=== PATIENT | female | born 1985 | race Caucasian/White ===

== ENCOUNTER 2016-09-18 19:46 | Emergency (ER) | payer OTHER ==
[2016-09-18] MEDS ORDERED: Benzocaine 20% Topical Spray UD MUCMEM ONE ×2 (20:09→20:16)
[2016-09-18] MEDS ORDERED: Lidocaine 2% Viscous Solution 15 ML Cup PO ONE (20:09)
--- NOTE | 2016-09-18 20:14 | EDM.PDOC ---
ED HPI GENERAL MEDICAL PROBLEM - General Chief Complaint: General Stated Complaint: TOOTHACHE Time Seen by Provider: 09/18/16 20:03 - History of Present Illness INITIAL COMMENTS - FREE TEXT/NARRATIVE: HISTORY AND PHYSICAL: History of present illness: The patient is a healthy 31-year-old female presents with complaints of pain to her right upper molar that started this morning. The patient denies any swelling to her gum and has no other systemic complaints of fever chills chest pain shortness breath nausea vomiting or posterior sore throat. She states she knew she might of had a cavity in that tooth and then a piece broke off today which is triggered the pain. The patient has a history of a bilateral tubal ligation and took only Aleve for pain today. The patient has a child who has seen a local dentist and she said she is going to call them on Tuesday Review of systems: As per history of present illness and below otherwise all systems reviewed and negative. Past medical history: As per history of present illness and as reviewed below otherwise noncontributory. Surgical history: As per history of present illness and as reviewed below otherwise noncontributory. Social history: No reported history of drug or alcohol abuse. Family history: As per history of present illness and as reviewed below otherwise noncontributory. Physical exam: Gen.: Well-developed well-nourished thin female who is nontoxic and looks tearful in the room but is speaking clearly and easily. There is no evidence of any facial swelling seen visually HEENT: Atraumatic, normocephalic, pupils reactive, negative for conjunctival pallor or scleral icterus, mucous membranes moist, throat clear, neck supple, nontender, trachea midline. At the right upper molar tooth #2 there is a small defect noted posteriorly but no gum swelling and there is tenderness to any palpation of the tooth. There are other filling seen but no other gross dental disease is appreciated. There is no cervical adenopathy or nuchal rigidity. Lungs: Clear to auscultation, breath sounds equal bilaterally, chest nontender. Heart: S1S2, regular rate and rhythm no overt murmurs Abdomen: Soft, nondistended, nontender. NABS Genitourinary: Deferred. Rectal: Deferred. Extremities: Atraumatic, negative for cords or calf pain. Neurovascular unremarkable. Neuro: Awake, alert, oriented. Cranial nerves II through XII unremarkable. Cerebellum unremarkable. Motor and sensory unremarkable throughout. Exam nonfocal. Diagnostics: [] Therapeutics: Dental balls Impression: Dental pain/tooth fracture Definitive disposition and diagnosis as appropriate pending reevaluation and review of above. Right Upper Throat Pain Score (Numeric/FACES): 10 - Related Data Allergies Allergy/AdvReac Type Severity Reaction Status Date / Time amoxicillin Allergy Hives Verified 09/18/16 20:01 cefaclor [From Ceclor] Allergy Hives Verified 09/18/16 20:01 Home Meds: Home Meds . [No Known Home Meds] 09/18/16 [History] Past Medical History - Past Health History Medical/Surgical History: Denies Medical/Surgical History Respiratory History: Reports: Asthma Other Respiratory History: "I had asthma when I was little but I outgrew it" as reported by pt Genitourinary History: Reports: Other (See Below) Other Genitourinary History: left kidney enlarged - Infectious Disease History Infectious Disease History: Reports: Chicken Pox - Past Surgical History Respiratory Surgical History: Reports: None Female Surgical History: Reports: Section Social & Family History - Family History Family Medical History: Noncontributory - Tobacco Use Smoking Status *Q: Never Smoker Second Hand Smoke Exposure: No - Caffeine Use Caffeine Use: Reports: Soda Caffeine Use Comment: "rarely" - Alcohol Use Days Per Week of Alcohol Use: 0 - Recreational Drug Use Recreational Drug Use: No ED ROS GENERAL - Review of Systems Review Of Systems: ROS reveals no pertinent complaints other than HPI. ED EXAM, GENERAL - Physical Exam Exam: See Below (See dictation) Course - Vital Signs Last Recorded V/S: Last Vital Signs Temp 36.8 C 09/18/16 19:57 Pulse 78 09/18/16 19:57 Resp 18 09/18/16 19:57 BP 116/81 09/18/16 19:57 Pulse Ox 98 09/18/16 19:57 - Orders/Labs/Meds Meds: Medications Discontinued Medications Generic Name Dose Route Start Last Admin Trade Name Freq PRN Reason Stop Dose Admin Benzocaine 2 each 09/18/16 20:09 Hurricaine One 20% MUCMEM 09/18/16 20:10 ONETIME ONE Lidocaine HCl 15 ml 09/18/16 20:09 Xylocaine 2% Viscous PO 09/18/16 20:10 ONETIME ONE Departure - Departure Time of Disposition: 20:18 Disposition: Home, Self-Care 01 Condition: Good Clinical Impression: Pain, dental Tooth fracture Qualifiers: Encounter type: initial encounter Fracture type: closed Qualified Code(s): S02.5XXA - Fracture of tooth (traumatic), initial encounter for closed fracture - Discharge Information Forms: ED Department Discharge Additional Instructions: The following information is given to patients seen in the emergency department who are being discharged to home. This information is to outline your options for follow-up care. We provide all patients seen in our emergency department with a follow-up referral. The need for follow-up, as well as the timing and circumstances, are variable depending upon the specifics of your emergency department visit. If you don't have a primary care physician on staff, we will provide you with a referral. We always advise you to contact your personal physician following an emergency department visit to inform them of the circumstance of the visit and for follow-up with them and/or the need for any referrals to a consulting specialist. The emergency department will also refer you to a specialist when appropriate. This referral assures that you have the opportunity for followup care with a specialist. All of these measure are taken in an effort to provide you with optimal care, which includes your followup. Under all circumstances we always encourage you to contact your private physician who remains a resource for coordinating your care. When calling for followup care, please make the office aware that this follow-up is from your recent emergency room visit. If for any reason you are refused follow-up, please contact the [facility] emergency department at and ask to speak to the emergency department charge nurse. [facility]- Internal Medicine and Family [address] [address] Use ice to face for any swelling and use dental balls you have been given in the ED as shown for pain. Continue to use [id number] Aleve Motrin or ibuprofen as well as Tylenol and only take the stronger pain medication prescribed to at sleep time. Please call and follow-up with local dentist for definitive care and treatment and return to ER as needed and as discussed
[2016-09-18 20:38] VITALS: BP 142/89
== END 2016-09-18 20:35 | disposition home or self-care (01) ==
LOC: MW.ED 19:46
DX: K03.81 Cracked tooth (principal); J45.909 Unspecified asthma, uncomplicated; Z88.1 Allergy status to other antibiotic agents
CPT/HCPCS: 99283; A9270

== ENCOUNTER 2016-11-17 14:43 | Emergency (ER) | payer OTHER ==
[2016-11-17 14:57] VITALS: BP 115/82
--- NOTE | 2016-11-17 16:55 | EDM.PDOC ---
ED HPI GENERAL MEDICAL PROBLEM - General Chief Complaint: Upper Extremity Injury/Pain Stated Complaint: LT SHOULDER HURTS Time Seen by Provider: 11/17/16 15:05 Source of Information: Reports: Patient History Limitations: Reports: No Limitations - History of Present Illness INITIAL COMMENTS - FREE TEXT/NARRATIVE: HISTORY AND PHYSICAL: History of present illness: [] 31-year-old female 2 days status post fall one getting out of her truck. Patient states she injured her left shoulder area. It's been sore since that time. She is able to use her hand and arm but the shoulders been mildly sore. She denies collarbone pain. Patient also reports that left lateral ribs are sore. She is not short of breath and has no pleuritic pain. She has no swelling or bruising or skin changes. No prior injury to the shoulder and no chronic bone or bleeding problems Review of systems: As per history of present illness and below otherwise all systems reviewed and negative. Past medical history: As per history of present illness and as reviewed below otherwise noncontributory. Surgical history: As per history of present illness and as reviewed below otherwise noncontributory. Social history: No reported history of drug or alcohol abuse. Family history: As per history of present illness and as reviewed below otherwise noncontributory. Physical exam: Well-appearing 31-year-old female no acute distress mild soft tissue tenderness left shoulder and left lateral ribs no bony tenderness or crepitus. No subcutaneous air well-appearing patient with no ecchymosis. Nurse present for exam. HEENT: Atraumatic, normocephalic, pupils reactive, negative for conjunctival pallor or scleral icterus, mucous membranes moist, throat clear, neck supple, nontender, trachea midline. Lungs: Clear to auscultation, breath sounds equal bilaterally, chest nontender. Heart: S1S2, regular, negative for clicks, rubs, or JVD. Abdomen: Soft, nondistended, nontender. Negative for masses or hepatosplenomegaly. Negative for costovertebral tenderness. Pelvis: Stable nontender. Genitourinary: Deferred. Rectal: Deferred. Extremities: Atraumatic, negative for cords or calf pain. Neurovascular unremarkable. Neuro: Awake, alert, oriented. Cranial nerves unremarkable. Cerebellum unremarkable. Motor and sensory unremarkable throughout. Exam nonfocal. Diagnostics: [X-ray left shoulder and left ribs with PA chest unremarkable with no fractures no pneumothorax interpreted by me] Therapeutics: [] Impression: [] Plan: [Signs and symptoms consistent with left rib injury and contusion of left chest wall. Patient aware of possibility of nondisplaced fracture however she does not have bony tenderness clinically. No pneumothorax. Mild soft tissue tenderness left shoulder but without swelling or ecchymosis. X-rays unremarkable. No further workup or treatment indicated. Patient aware to take NSAIDs and Tylenol and follow-up with a primary care doctor. She agrees with outpatient follow-up and Strict return precautions given] Definitive disposition and diagnosis as appropriate pending reevaluation and review of above. Left Shoulder Pain Score (Numeric/FACES): 6 - Related Data Allergies Allergy/AdvReac Type Severity Reaction Status Date / Time amoxicillin Allergy Hives Verified 09/18/16 20:01 cefaclor [From Ceclor] Allergy Hives Verified 09/18/16 20:01 Home Meds: Home Meds . [No Known Home Meds] 09/18/16 [History] Past Medical History - Past Health History Medical/Surgical History: Denies Medical/Surgical History Respiratory History: Reports: Asthma Other Respiratory History: "I had asthma when I was little but I outgrew it" as reported by pt Genitourinary History: Reports: Other (See Below) Other Genitourinary History: left kidney enlarged - Infectious Disease History Infectious Disease History: Reports: Chicken Pox - Past Surgical History Respiratory Surgical History: Reports: None Female Surgical History: Reports: Section Social & Family History - Family History Family Medical History: Noncontributory - Tobacco Use Smoking Status *Q: Never Smoker Second Hand Smoke Exposure: No - Caffeine Use Caffeine Use: Reports: Soda Caffeine Use Comment: "rarely" - Alcohol Use Days Per Week of Alcohol Use: 0 - Recreational Drug Use Recreational Drug Use: No Review of Systems - Review of Systems Review Of Systems: See Below (History of present illness) ED EXAM, GENERAL - Physical Exam Exam: See Below (History of present illness) Course - Vital Signs Last Recorded V/S: Last Vital Signs Temp 36.6 C 11/17/16 14:53 Pulse 71 11/17/16 14:53 Resp 18 11/17/16 14:53 BP 115/82 11/17/16 14:53 Pulse Ox 99 11/17/16 14:53 - Orders/Labs/Meds Orders: Active Orders 24 hr Category Date Time Status Ribs 2V w Chest Lt [CR] Stat Exams 11/17/16 15:14 Taken Shoulder Comp Lt [CR] Stat Exams 11/17/16 15:14 Taken Departure - Departure Time of Disposition: 16:48 Disposition: Home, Self-Care 01 Condition: Good Clinical Impression: Contusion of left shoulder, Contusion, chest wall - Discharge Information Instructions: Chest Contusion, [id number] Referrals: PCP,None [Primary Care Provider] - Forms: ED Department Discharge Additional Instructions: You have a contusions or bruises of your left shoulder and left chest wall. Take ibuprofen 600 mg every 6 hrs as needed. Follow up with your doctor. Return immediately for new severe or worsening symptoms. - My Orders Last 24 Hours: My Active Orders 11/17/16 15:14 Ribs 2V w Chest Lt [CR] Stat Shoulder Comp Lt [CR] Stat - Assessment/Plan Last 24 Hours: My Active Orders 11/17/16 15:14 Ribs 2V w Chest Lt [CR] Stat Shoulder Comp Lt [CR] Stat
--- NOTE | 2016-11-18 09:55 | CR ---
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 Site : 1985 Study: XRay Shoulder [id number]/27/[id number] 3:50:02 PM Ordering Physician: Silviano Ambriz Final Report: HISTORY: Fall. FINDINGS: Three views of the left shoulder demonstrates normal alignment. No fracture or dislocation is identified. IMPRESSION: Normal left shoulder. Dictated by Andie Ray MD @ 11/17/2016 4:10:57 PM Dictated by: Andie Ray MD @ 11/17/2016 16:13:02 (Electronic Signature) Report Signed by Proxy. [facility]ENTERJocelyn
--- NOTE | 2016-11-18 09:57 | CR ---
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 Site : 1985 Study: XRay Chest w/ RIBS [id number]/27/2017 3:51:29 PM Ordering Physician: Silviano Ambriz Final Report: HISTORY: Fall, chest wall injury. FINDINGS: PA chest and 3 additional views of the left ribs demonstrates a slender cardiac silhouette. Pulmonary vasculature and petros are normal. No consolidation, pleural effusion or pneumothorax is identified. The left clavicle and shoulder are intact. No displaced rib fracture is seen. IMPRESSION: No acute cardiopulmonary disease, displaced rib fracture or pneumothorax. Dictated by Andie Ray MD @ 11/17/2016 4:12:50 PM Dictated by: Andie Ray MD @ 11/17/2016 16:12:58 (Electronic Signature) Report Signed by Proxy. [facility]ENTER[facility]ocelyn
== END 2016-11-17 17:02 | disposition home or self-care (01) ==
LOC: MW.ED 14:43
DX: S40.012A Contusion of left shoulder, initial encounter (principal); S20.212A Contusion of left front wall of thorax, initial encounter; J45.909 Unspecified asthma, uncomplicated; Z88.1 Allergy status to other antibiotic agents; W17.89XA Other fall from one level to another, initial encounter
CPT/HCPCS: 71101-26-LT; 71101-LT; 73030-26-LT; 73030-LT; 99282; 99283

== ENCOUNTER 2016-11-21 10:20 | Emergency (ER) | payer OTHER ==
[2016-11-21] MEDS ORDERED: Ketorolac 60 MG/2 ML SDV IM ONE (10:39)
[2016-11-21] MEDS ORDERED: Sodium Chloride 0.9% 10 ML Syringe FLUSH PRN (10:49)
[2016-11-21] MEDS ORDERED: Sodium Chloride 0.9% 2.5 ML Syringe FLUSH PRN (10:49)
[2016-11-21] MEDS ORDERED: Sodium Chloride 0.9% 1,000 ML IV ONE (10:50)
--- NOTE | 2016-11-21 10:55 | EDM.PDOC ---
ED HPI GENERAL MEDICAL PROBLEM - General Chief Complaint: Abdominal Pain Stated Complaint: LOWER ABDMONAIL PAIN Time Seen by Provider: 11/21/16 10:45 Source of Information: Reports: Patient History Limitations: Reports: No Limitations - History of Present Illness INITIAL COMMENTS - FREE TEXT/NARRATIVE: HISTORY AND PHYSICAL: [31-year-old female presenting with pelvic pain after trying to void 30 minutes ago] History of Present Illness: [Patient was at a local chest pain had to use the restroom and pain became excruciating when she had to void] Review of Systems: As per history of present illness and below otherwise all systems reviewed and negative. Past medical history: As per history of present illness and as reviewed below otherwise noncontributory. Surgical history: As per history of present illness and as reviewed below otherwise noncontributory. Social history: No reported history of drug or alcohol abuse. Family history: As per history of present illness and as reviewed below otherwise noncontributory. Physical exam: Alert oriented female who is in distress with her pain is slightly guarding with examination HEENT: Atraumatic, normocehpalic, pupils reactive, negative for conjunctival pallor or scleral icterus, mucous membranes moist, throat clear, neck supple, nontender, trachea midline. Lungs: Clear to auscultation, breath sounds equal bilaterally, chest non tender. Heart: S1S2, regular, negative for clicks, rubs, or JVD. Abdomen: Soft, nondistended, tender. Negative for masses or hepatossplenmegaly. Negative for costovertebral tenderness. Bladder scan shows 0. Pelvis: Stable nontender. Genitourinary: Deferred. Rectal: Deferred Extremities: Atraumatic, negative for cords or calf pain. Neurovascular unremarkable. Neuro: Awake, alert, oriented. Cranial nerves II through XII unremarkable. Cerebellum unremarkable. Motor and sensory unremarkable throughout. Exam nonfocal. Discussed with patient and her that no gross abnormalities were noted on the ultrasound. Small amount of pelvic fluid was present. No infection is present on urinalysis. Diagnostics: [Urinalysis/ ultrasound pelvic] Therapeutics: [Toradol] Impression: [Pelvic pain Fluid to the cul-de-sac ] Plan: []Discharged to home Follow up with your primary care Definitive disposition and diagnosis as appropriate pending reevaluation and review of above. Onset: Today, Sudden Duration: Minutes: (30) Location: Reports: Pelvis hypogastric Pain Score (Numeric/FACES): 10 - Related Data Allergies Allergy/AdvReac Type Severity Reaction Status Date / Time amoxicillin Allergy Hives Verified 11/21/16 10:27 cefaclor [From Ceclor] Allergy Hives Verified 11/21/16 10:27 Home Meds: Home Meds . 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: - Infectious Disease History Infectious Disease History: Reports: Chicken Pox - Past Surgical History Respiratory Surgical History: Reports: None Female Surgical History: Reports: Section Social & Family History - Family History Family Medical History: Noncontributory - Tobacco Use Smoking Status *Q: Never Smoker Second Hand Smoke Exposure: No - Caffeine Use Caffeine Use: Reports: Soda Caffeine Use Comment: "rarely" - Alcohol Use Days Per Week of Alcohol Use: 0 - Recreational Drug Use Recreational Drug Use: No ED ROS GENERAL - Review of Systems Review Of Systems: ROS reveals no pertinent complaints other than HPI. (See dictation) ED EXAM, RENAL/ - Physical Exam Exam: See Below (See dictation) Course - Vital Signs Last Recorded V/S: Last Vital Signs Temp 36.5 C 11/21/16 10:20 Pulse 69 11/21/16 11:17 Resp 20 11/21/16 10:20 BP 106/69 11/21/16 11:17 Pulse Ox - Orders/Labs/Meds Orders: Active Orders 24 hr Category Date Time Status Pelvis Non OB Comp [US] Stat Exams 11/21/16 10:48 Taken CULTURE URINE [RM] Stat Lab 11/21/16 10:55 Received Sodium Chloride 0.9% [Saline Flush] Med 11/21/16 10:49 Active 10 ml FLUSH ASDIRECTED PRN Sodium Chloride 0.9% [Saline Flush] Med 11/21/16 10:49 Active 2.5 ml FLUSH ASDIRECTED PRN Saline Lock Insert [OM.PC] Stat Oth 11/21/16 10:49 Ordered Medication Orders Sodium Chloride (Saline Flush) 10 ml FLUSH ASDIRECTED PRN PRN Reason: Keep Vein Open Last Admin: 11/21/16 11:00 Dose: 10 ml Sodium Chloride (Saline Flush) 2.5 ml FLUSH ASDIRECTED PRN PRN Reason: Keep Vein Open Last Admin: 11/21/16 11:01 Dose: 2.5 ml Labs: Laboratory Tests 11/21/16 11/21/16 11/21/16 Range/Units 10:55 10:55 11:00 WBC 3.88 L (4.0-11.0) K/uL RBC 3.98 L (4.30-5.90) M/uL Hgb 12.2 (12.0-16.0) g/dL Hct 36.5 (36.0-46.0) % MCV 91.7 (80.0-98.0) fL MCH 30.7 (27.0-32.0) pg MCHC 33.4 (31.0-37.0) g/dL RDW Std Deviation 41.4 (28.0-62.0) fl RDW Coeff of Catherine 12 (11.0-15.0) % Plt Count 146 L (150-400) K/uL MPV 11.30 (7.40-12.00) fL Neut % (Auto) 60.9 (48.0-80.0) % Lymph % (Auto) 31.4 (16.0-40.0) % Shackelford % (Auto) 6.2 (0.0-15.0) % Eos % (Auto) 0.5 (0.0-7.0) % Baso % (Auto) 1.0 (0.0-1.5) % Neut # (Auto) 2.4 (1.4-5.7) K/uL Lymph # (Auto) 1.2 (0.6-2.4) K/uL Shackelford # (Auto) 0.2 (0.0-0.8) K/uL Eos # (Auto) 0.0 (0.0-0.7) K/uL Baso # (Auto) 0.0 (0.0-0.1) K/uL Nucleated RBC % 0.0 /100WBC Nucleated RBCs # 0 K/uL Sodium (136-146) mmol/L Potassium (3.5-5.1) mmol/L Chloride (98-110) mmol/L Carbon Dioxide (21-31) mmol/L BUN (6.0-23.0) mg/dL Creatinine (0.6-1.5) mg/dL Est Cr Clr Drug Dosing mL/min Estimated GFR (MDRD) ml/min Glucose (60-110) mg/dL Calcium (8.8-10.8) mg/dL Total Bilirubin (0.1-1.5) mg/dL AST (5-40) IU/L ALT (8-54) IU/L Alkaline Phosphatase (40-150) Total Protein (6.0-8.0) g/dL Albumin (3.5-5.0) g/dL Globulin (2.0-3.5) g/dL Albumin/Globulin Ratio (1.3-2.8) Urine Color YELLOW Urine Appearance CLEAR Urine pH 7.0 (5.0-8.0) Ur Specific Marlin 1.015 (1.001-1.035) Urine Protein NEGATIVE (NEGATIVE) mg/dL Urine Glucose (UA) NEGATIVE (NEGATIVE) mg/dL Urine Ketones NEGATIVE (NEGATIVE) mg/dL Urine Occult Blood NEGATIVE (NEGATIVE) Urine Nitrite NEGATIVE (NEGATIVE) Urine Bilirubin NEGATIVE (NEGATIVE) Urine Urobilinogen 0.2 (<2.0) EU/dL Ur Leukocyte Esterase NEGATIVE (NEGATIVE) Urine RBC NONE SEEN (0-2/HPF) Urine WBC 0-1 (0-5/HPF) Ur Epithelial Cells FEW (NONE-FEW) Urine Bacteria FEW (NEGATIVE) Urine HCG, Qual NEGATIVE (NEGATIVE) 11/21/16 Range/Units 11:00 WBC (4.0-11.0) K/uL RBC (4.30-5.90) M/uL Hgb (12.0-16.0) g/dL Hct (36.0-46.0) % MCV (80.0-98.0) fL MCH (27.0-32.0) pg MCHC (31.0-37.0) g/dL RDW Std Deviation (28.0-62.0) fl RDW Coeff of Catherine (11.0-15.0) % Plt Count (150-400) K/uL MPV (7.40-12.00) fL Neut % (Auto) (48.0-80.0) % Lymph % (Auto) (16.0-40.0) % Shackelford % (Auto) (0.0-15.0) % Eos % (Auto) (0.0-7.0) % Baso % (Auto) (0.0-1.5) % Neut # (Auto) (1.4-5.7) K/uL Lymph # (Auto) (0.6-2.4) K/uL Shackelford # (Auto) (0.0-0.8) K/uL Eos # (Auto) (0.0-0.7) K/uL Baso # (Auto) (0.0-0.1) K/uL Nucleated RBC % /100WBC Nucleated RBCs # K/uL Sodium 139 (136-146) mmol/L Potassium 3.8 (3.5-5.1) mmol/L Chloride 108 (98-110) mmol/L Carbon Dioxide 26 (21-31) mmol/L BUN 16 (6.0-23.0) mg/dL Creatinine 0.7 (0.6-1.5) mg/dL Est Cr Clr Drug Dosing 79.23 mL/min Estimated GFR (MDRD) > 60.0 ml/min Glucose 70 (60-110) mg/dL Calcium 9.2 (8.8-10.8) mg/dL Total Bilirubin 0.7 (0.1-1.5) mg/dL AST 20 (5-40) IU/L ALT 15 (8-54) IU/L Alkaline Phosphatase 54 (40-150) Total Protein 6.9 (6.0-8.0) g/dL Albumin 4.1 (3.5-5.0) g/dL Globulin 2.8 (2.0-3.5) g/dL Albumin/Globulin Ratio 1.5 (1.3-2.8) Urine Color Urine Appearance Urine pH (5.0-8.0) Ur Specific Marlin (1.001-1.035) Urine Protein (NEGATIVE) mg/dL Urine Glucose (UA) (NEGATIVE) mg/dL Urine Ketones (NEGATIVE) mg/dL Urine Occult Blood (NEGATIVE) Urine Nitrite (NEGATIVE) Urine Bilirubin (NEGATIVE) Urine Urobilinogen (<2.0) EU/dL Ur Leukocyte Esterase (NEGATIVE) Urine RBC (0-2/HPF) Urine WBC (0-5/HPF) Ur Epithelial Cells (NONE-FEW) Urine Bacteria (NEGATIVE) Urine HCG, Qual (NEGATIVE) Meds: Medications Generic Name Dose Route Start Last Admin Trade Name Freq PRN Reason Stop Dose Admin Sodium Chloride 10 ml 11/21/16 10:49 11/21/16 11:00 Saline Flush FLUSH 10 ml ASDIRECTED PRN Administration Keep Vein Open Sodium Chloride 2.5 ml 11/21/16 10:49 11/21/16 11:01 Saline Flush FLUSH 2.5 ml ASDIRECTED PRN Administration Keep Vein Open Discontinued Medications Generic Name Dose Route Start Last Admin Trade Name Freq PRN Reason Stop Dose Admin Sodium Chloride 1,000 mls @ 999 mls/hr 11/21/16 10:50 11/21/16 11:10 Normal Saline IV 11/21/16 11:50 999 mls/hr STAT ONE Administration Ketorolac Tromethamine 60 mg 11/21/16 10:39 11/21/16 11:39 Toradol IM 11/21/16 10:40 Not Given ONETIME ONE Ketorolac Tromethamine 30 mg 11/21/16 11:10 11/21/16 11:14 Toradol IVPUSH 11/21/16 11:11 30 mg ONETIME ONE Administration Departure - Departure Time of Disposition: 12:45 Disposition: Home, Self-Care 01 Condition: Good Clinical Impression: Pelvic pain - Discharge Information Instructions: Abdominal Pain, Adult, [id number] Referrals: PCP,None [Primary Care Provider] - Forms: ED Department Discharge Additional Instructions: The following information is given to patients seen in the emergency department who are being discharged to home. This information is to outline your options for follow-up care. We provide all patients seen in our emergency department with a follow-up referral. The need for follow-up, as well as the timing and circumstances, are variable depending upon the specifics of your emergency department visit. If you don't have a primary care physician on staff, we will provide you with a referral. We always advise you to contact your personal physician following an emergency department visit to inform them of the circumstance of the visit and for follow-up with them and/or the need for any referrals to a consulting specialist. The emergency department will also refer you to a specialist when appropriate. This referral assures that you have the opportunity for followup care with a specialist. All of these measure are taken in an effort to provide you with optimal care, which includes your followup. Under all circumstances we always encourage you to contact your private physician who remains a resource for coordinating your care. When calling for followup care, please make the office aware that this follow-up is from your recent emergency room visit. If for any reason you are refused follow-up, please contact the [facility] emergency department at and asked to speak to the emergency department charge nurse. The fluid in your pelvis could have been from a cyst however no adverse signs were noted Urinalysis was clear of any bacteria HCG was negative for Follow-up with your primary care provider Sleep perhaps a heating pad on low two-year abdomen may help [id number] Tylenol or Motrin for discomfort - My Orders Last 24 Hours: My Active Orders 11/21/16 10:48 Pelvis Non OB Comp [US] Stat 11/21/16 10:49 Sodium Chloride 0.9% [Saline Flush] 10 ml FLUSH ASDIRECTED PRN Sodium Chloride 0.9% [Saline Flush] 2.5 ml FLUSH ASDIRECTED PRN Saline Lock Insert [OM.PC] Stat 11/21/16 10:55 CULTURE URINE [RM] Stat - Assessment/Plan Last 24 Hours: My Active Orders 11/21/16 10:48 Pelvis Non OB Comp [US] Stat 11/21/16 10:49 Sodium Chloride 0.9% [Saline Flush] 10 ml FLUSH ASDIRECTED PRN Sodium Chloride 0.9% [Saline Flush] 2.5 ml FLUSH ASDIRECTED PRN Saline Lock Insert [OM.PC] Stat 11/21/16 10:55 CULTURE URINE [RM] Stat
[2016-11-21] MEDS ORDERED: Ketorolac 30 MG/ML SDV IVPUSH ONE (11:10)
[2016-11-21 11:34] LABS: CHLORIDE,CL 108 mmol/L (98-110); SODIUM,NA 139 mmol/L (136-146)
[2016-11-21 12:52] VITALS: BP 120/74
--- NOTE | 2016-11-22 14:36 | US ---
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 Site : 1985 Study: US Pelvis [id number] 12:00:35 PM Ordering Physician: Doctor Bledsoe Final Report: INDICATION: Left pelvic pain for 2 hour. TECHNIQUE: Transabdominal and transvaginal scanning was performed. Transvaginal scanning was performed to optimally evaluate the endometrium and adnexa. Ovarian blood flow was evaluated with color-flow and pulsed Doppler. COMPARISON: None. FINDINGS: The uterus is mildly enlarged and normal in shape. The uterus measures 9.7 x 6.7 x 4.2 cm. No uterine mass is evident. The endometrial stripe is normal in thickness at 7 mm. The ovaries are normal in size and contain a number of follicles. The right ovary measures 3.3 x 3.0 x 2.1 cm and left 3.0 x 1.8 x 1.2 cm. Ovarian blood flow is demonstrated with color-flow and pulsed Doppler. No adnexal mass is evident. A small amount of free fluid is present in the cul- de-sac and in the right adnexa. This is presumably physiologic IMPRESSION: 1. Normal ovaries and adnexa. 2. Small amount of free fluid, likely physiologic. 3. Mildly enlarged uterus. Dictated by Edward Kyle MD @ Nov 21 2016 12:10PM (Electronic Signature) Report Signed by Proxy. VALDEZ
== END 2016-11-21 12:57 | disposition home or self-care (01) ==
LOC: MW.ED 10:20
DX: R10.2 Pelvic and perineal pain (principal); J45.909 Unspecified asthma, uncomplicated; Z88.1 Allergy status to other antibiotic agents
CPT/HCPCS: 36415; 76856; 80053; 81001; 81025; 85025; 87086; 96361; 96374; 99284; J1885; J7040; 99282

== ENCOUNTER 2017-04-30 20:31 | Emergency (ER) | payer OTHER ==
[2017-04-30] MEDS ORDERED: Sodium Chloride 0.9% 1,000 ML IV ONE (20:34)
[2017-04-30] MEDS ORDERED: Morphine 2 MG/ML Syringe ONE (20:34)
[2017-04-30] MEDS ORDERED: Sodium Chloride 0.9% 10 ML Syringe FLUSH PRN (20:34)
[2017-04-30] MEDS ORDERED: Sodium Chloride 0.9% 2.5 ML Syringe FLUSH PRN (20:34)
[2017-04-30] MEDS ORDERED: Ondansetron 4 MG/2 ML SDV ONE (20:34)
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
[2017-04-30] MEDS ORDERED: Morphine 2 MG/ML Syringe IVPUSH ONE (20:48)
[2017-04-30] MEDS ORDERED: Ondansetron 4 MG/2 ML SDV IVPUSH ONE (20:48)
[2017-04-30 21:05] LABS: CHLORIDE,CL 106 mmol/L (98-107); SODIUM,NA 141 mmol/L (136-145)
[2017-04-30 22:53] VITALS: BP 131/85
[2017-05-02] MEDS ORDERED: Iopamidol 755 MG/ML 200 ML Multipack Bottle IVPUSH STA (03:28)
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
== END 2017-04-30 22:15 ==
LOC: MW.ED 20:31
DX: S06.5X0A Traumatic subdural hemorrhage without loss of consciousness, initial encounter (principal); S00.83XA Contusion of other part of head, initial encounter; S50.311A Abrasion of right elbow, initial encounter; S80.211A Abrasion, right knee, initial encounter; S60.411A Abrasion of left index finger, initial encounter; R10.30 Lower abdominal pain, unspecified; M25.552 Pain in left hip; M25.562 Pain in left knee; M54.2 Cervicalgia; J45.909 Unspecified asthma, uncomplicated; V43.62XA Car passenger injured in collision with other type car in traffic accident, initial encounter; Z88.1 Allergy status to other antibiotic agents
CPT/HCPCS: 70450; 71260; 72125; 74177; 80053; 80305; 81001; 83690; 84703; 85025; 85610; 93005; 96361; 96374; 96375; 99285; G0480; J2270; J2405; J7040; Q9967

== ENCOUNTER 2018-05-06 12:35 | Emergency (ER) | payer OTHER ==
[2018-05-06 12:46] VITALS: BP 96/48
[2018-05-06] MEDS ORDERED: traMADol 50 MG Tab PO ONE (12:54)
--- NOTE | 2018-05-06 13:41 | EDM.PDOC ---
ED HPI GENERAL MEDICAL PROBLEM - General Chief Complaint: Lower Extremity Injury/Pain Stated Complaint: INJURED LT ANKLE Time Seen by Provider: 05/06/18 12:37 Source of Information: Reports: Patient History Limitations: Reports: No Limitations - History of Present Illness INITIAL COMMENTS - FREE TEXT/NARRATIVE: HISTORY AND PHYSICAL: History of present illness: Patient is a 32-year-old female who presents to the emergency room with complaints of left lateral ankle pain. She states she was walking outside when she twisted her ankle resulting in pain, soft tissue swelling and light bruising. She states it's painful with weightbearing and ambulation. Denies any previous injury, trauma or surgeries of the affected extremity. The twisting of the ankle did not result in a fall. Denies any other concerns or body part Review of systems: As per history of present illness and below otherwise all systems reviewed and negative. Past medical history: As per history of present illness and as reviewed below otherwise noncontributory. Surgical history: As per history of present illness and as reviewed below otherwise noncontributory. Social history: See social history for further information Family history: As per history of present illness and as reviewed below otherwise noncontributory. Physical exam: General: Well-developed and well-nourished 32-year-old female. Alert and oriented. Nontoxic appearing and in no acute distress. HEENT: Atraumatic, normocephalic, pupils equal and reactive bilaterally, negative for conjunctival pallor or scleral icterus, mucous membranes moist, TMs normal bilaterally, throat clear, neck supple, nontender, trachea midline. No drooling or trismus noted. No meningeal signs. No hot potato voice noted. Lungs: Clear to auscultation, breath sounds equal bilaterally, chest nontender. Heart: S1S2, regular rate and rhythm without overt murmur Abdomen: Soft, nondistended, nontender. Skin: There is bruising to the left lateral ankle with mild soft tissue swelling. Skin is intact warm and dry. No lesions or rashes noted. Extremities: Bruising to the left lateral ankle with mild soft tissue swelling. She has moderate tenderness with palpation to the lateral ankle and anterior ankle. She is weightbearing as she did ambulate into the emergency room. Strong pedal and pretibial pulse. She is negative for cords or calf pain. Neurovascular unremarkable. Neuro: Awake, alert, oriented. Cranial nerves II through XII unremarkable. Cerebellum unremarkable. Motor and sensory unremarkable throughout. Exam nonfocal. Notes: Patient has exquisite tenderness with light palpation. I will give her tramadol as her is here to drive. X-ray pending X-ray shows no acute findings. We'll put her in an Andrea wrap for comfort and provided crutches. Encouraged her to follow-up with the orthopedic provider in the next week. Supportive care measures were reviewed and discussed. Voices understanding and is agreeable to plan of care. Denies any further questions or concerns at this time. Diagnostics: X-ray Therapeutics: Tramadol, crutches, Andrea wrap Prescription: Tramadol Impression: Left ankle injury Plan: 1. Rest, ice, elevate the affected extremity. Please wear the Andrea wrap and use crutches as directed. 2. Tylenol and/or Ibuprofen as needed for pain management. 3. Follow up with the Orthopedic provider as we discussed. Return to the ED as needed and as discussed. Definitive disposition and diagnosis as appropriate pending reevaluation and review of above. Left Ankle Pain Score (Numeric/FACES): 10 - Related Data Allergies Allergy/AdvReac Type Severity Reaction Status Date / Time amoxicillin Allergy Hives Verified 05/06/18 12:42 cefaclor [From Ceclor] Allergy Hives Verified 05/06/18 12:42 Home Meds: Home Meds Ciprofloxacin [Ciprofloxacin HCl] 500 mg PO DAILY 05/06/18 [History] Potassium Chloride 10 meq PO DAILY 05/06/18 [History] traMADol [Ultram] 50 mg PO Q4H PRN #15 tab 05/06/18 [Rx] Past Medical History - Past Health History Medical/Surgical History: Denies Medical/Surgical History Respiratory History: Reports: Asthma Other Respiratory History: "I had asthma when I was little but I outgrew it" as reported by pt Genitourinary History: Reports: Other (See Below) Other Genitourinary History: left kidney enlarged [employer] History: Reports: - Infectious Disease History Infectious Disease History: Reports: Chicken Pox - Past Surgical History Respiratory Surgical History: Reports: None Female Surgical History: Reports: Section Social & Family History - Family History Family Medical History: Noncontributory - Tobacco Use Smoking Status *Q: Never Smoker Second Hand Smoke Exposure: No - Caffeine Use Caffeine Use: Reports: None Caffeine Use Comment: "rarely" - Recreational Drug Use Recreational Drug Use: No Review of Systems - Review of Systems Review Of Systems: ROS reveals no pertinent complaints other than HPI. ED EXAM, GENERAL - Physical Exam Exam: See Below Course - Vital Signs Last Recorded V/S: Last Vital Signs Temp 97.8 F 05/06/18 12:43 Pulse 69 05/06/18 12:43 Resp 18 05/06/18 12:43 BP 96/48 L 05/06/18 12:43 Pulse Ox 100 05/06/18 12:43 - Orders/Labs/Meds Orders: Active Orders 24 hr Category Date Time Status DME for Discharge [COMM] Stat Oth 05/06/18 13:41 Ordered Meds: Medications Discontinued Medications Generic Name Dose Route Start Last Admin Trade Name Freq PRN Reason Stop Dose Admin Ondansetron HCl 4 mg 05/06/18 13:45 Zofran IVPUSH 05/06/18 13:46 ONETIME ONE Ondansetron HCl 4 mg 05/06/18 13:47 05/06/18 13:49 Zofran Odt PO 05/06/18 13:48 4 mg ONETIME ONE Administration Tramadol HCl 50 mg 05/06/18 12:54 05/06/18 13:00 Ultram PO 05/06/18 12:55 50 mg ONETIME ONE Administration Departure - Departure Time of Disposition: 13:40 Disposition: Home, Self-Care 01 Clinical Impression: Left ankle injury Qualifiers: Encounter type: initial encounter Qualified Code(s): S99.912A - Unspecified injury of left ankle, initial encounter - Discharge Information Prescriptions: traMADol [Ultram] 50 mg PO Q4H PRN #15 tab PRN Reason: Pain Instructions: Ankle Sprain, [id number] Referrals: PCP,Unknown [Primary Care Provider] - Forms: ED Department Discharge Additional Instructions: The following information is given to patients seen in the emergency department who are being discharged to home. This information is to outline your options for follow-up care. We provide all patients seen in our emergency department with a follow-up referral. The need for follow-up, as well as the timing and circumstances, are variable depending upon the specifics of your emergency department visit. If you don't have a primary care physician on staff, we will provide you with a referral. We always advise you to contact your personal physician following an emergency department visit to inform them of the circumstance of the visit and for follow-up with them and/or the need for any referrals to a consulting specialist. The emergency department will also refer you to a specialist when appropriate. This referral assures that you have the opportunity for follow-up care with a specialist. All of these measure are taken in an effort to provide you with optimal care, which includes your follow-up. Under all circumstances we always encourage you to contact your private physician who remains a resource for coordinating your care. When calling for follow-up care, please make the office aware that this follow-up is from your recent emergency room visit. If for any reason you are refused follow-up, please contact the [facility] Emergency Department at and asked to speak to the emergency department charge nurse. [facility] [address] [place] [address] [id number] [address] [address] [facility] [address], [address] [place] [address] 1. Rest, ice, elevate the affected extremity. Please wear the splint and use crutches as directed. 2. Tylenol and/or Ibuprofen as needed for pain management. 3. Follow up with the Orthopedic provider as we discussed. Return to the ED as needed and as discussed. - My Orders Last 24 Hours: My Active Orders 05/06/18 13:41 DME for Discharge [COMM] Stat - Assessment/Plan Last 24 Hours: My Active Orders 05/06/18 13:41 DME for Discharge [COMM] Stat
[2018-05-06] MEDS ORDERED: Ondansetron 4 MG/2 ML SDV IVPUSH ONE (13:45)
[2018-05-06] MEDS ORDERED: Ondansetron 4 MG Tab.DIS PO ONE (13:47)
--- NOTE | 2018-05-06 13:49 | CR ---
INDICATION: Left ankle pain. TECHNIQUE: X-ray left ankle, 3 views. COMPARISON: None available. FINDINGS: The alignment is normal. Negative for acute fracture or dislocation. The ankle mortise is intact. The overlying soft tissues unremarkable. No radiopaque foreign body is seen. IMPRESSION: Unremarkable radiographs of the left ankle. Dictated by Gemma Catherine MD @ 05/06/2018 1:47:46 PM Dictated by: Gemma Catherine MD @ 05/06/2018 13:47:53 (Electronically Signed)
== END 2018-05-06 14:02 | disposition home or self-care (01) ==
LOC: MW.ED 12:35
DX: S99.912A Unspecified injury of left ankle, initial encounter (principal); Z79.899 Other long term (current) drug therapy; Z88.1 Allergy status to other antibiotic agents; X50.9XXA Other and unspecified overexertion or strenuous movements or postures, initial encounter
CPT/HCPCS: 73610; 99283; A9270

== ENCOUNTER 2018-06-29 16:12 | Emergency (ER) | payer OTHER ==
--- NOTE | 2018-06-29 16:38 | EDM.PDOC ---
ED HPI GENERAL MEDICAL PROBLEM - General Stated Complaint: HANDS AN FEET ARE COLD Time Seen by Provider: 06/29/18 16:14 Source of Information: Reports: Patient History Limitations: Reports: No Limitations - History of Present Illness INITIAL COMMENTS - FREE TEXT/NARRATIVE: History of present illness: []Patient noted today that both her hands and feet have been feeling cold and have been dark red. She denies any trauma, fevers, chills, back chest or abdominal pain. Patient states that her wedding ring is usually loose but today she struggled to take it off noting swelling in her hands. Review of systems: As per history of present illness and below otherwise all systems reviewed and negative. Past medical history: As per history of present illness and as reviewed below otherwise noncontributory. Surgical history: As per history of present illness and as reviewed below otherwise noncontributory. Social history: No reported history of drug or alcohol abuse. Family history: As per history of present illness and as reviewed below otherwise noncontributory. Physical exam: General: Well developed, well nourished in NAD HEENT: Atraumatic, normocephalic, pupils reactive, negative for conjunctival pallor or scleral icterus, mucous membranes moist, throat clear, neck supple, nontender, trachea midline. Lungs: Clear to auscultation, breath sounds equal bilaterally, chest nontender. Heart: S1S2, regular, negative for clicks, rubs, or JVD. Abdomen: NABS, Soft, nondistended, nontender. Negative for masses or hepatosplenomegaly. Negative for costovertebral tenderness. Pelvis: Stable nontender. Genitourinary: Deferred. Rectal: Deferred. Extremities: Atraumatic, all 4 extremities are bright red with brisk capillary refill all 4 extremities distal pulses are palpable, no cyanosis noted sensations intact negative for cords or calf pain. Neurovascular unremarkable. Neuro: Awake, alert, oriented. Cranial nerves II through XII unremarkable. Cerebellum unremarkable. Motor and sensory unremarkable throughout. Exam nonfocal. Skin:warm and dry Diagnostics: None Therapeutics: None ED Course: Unremarkable, I encouraged patient to follow-up with her primary doctor for further workup as this may be Raynauds syndrome or some other autoimmune disease Impression: Encounter for screening medical exam Prescriptions: None Plan: With primary care. Definitive disposition and diagnosis as appropriate pending reevaluation and review of above. - Related Data Allergies Allergy/AdvReac Type Severity Reaction Status Date / Time amoxicillin Allergy Hives Verified 05/06/18 12:42 cefaclor [From Ceclor] Allergy Hives Verified 05/06/18 12:42 Home Meds: Home Meds Ciprofloxacin [Ciprofloxacin HCl] 500 mg PO DAILY 05/06/18 [History] Potassium Chloride 10 meq PO DAILY 05/06/18 [History] traMADol [Ultram] 50 mg PO Q4H PRN #15 tab 05/06/18 [Rx] Past Medical History - Past Health History Medical/Surgical History: Denies Medical/Surgical History Respiratory History: Reports: Asthma Other Respiratory History: "I had asthma when I was little but I outgrew it" as reported by pt Genitourinary History: Reports: Other (See Below) 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 ED EXAM, GENERAL - Physical Exam Exam: See Below (History of present illness) Departure - Departure Time of Disposition: 16:37 Disposition: Home, Self-Care 01 Condition: Good Clinical Impression: Encounter for medical screening examination - Discharge Information *PRESCRIPTION DRUG MONITORING PROGRAM REVIEWED*: No *COPY OF PRESCRIPTION DRUG MONITORING REPORT IN PATIENT MACHO: No Referrals: Obdulio Garcia MD [Primary Care Provider] - Additional Instructions: The following information is given to patients seen in the emergency department who are being discharged to home. This information is to outline your options for follow-up care. We provide all patients seen in our emergency department with a follow-up referral. The need for follow-up, as well as the timing and circumstances, are variable depending upon the specifics of your emergency department visit. If you don't have a primary care physician on staff, we will provide you with a referral. We always advise you to contact your personal physician following an emergency department visit to inform them of the circumstance of the visit and for follow-up with them and/or the need for any referrals to a consulting specialist. The emergency department will also refer you to a specialist when appropriate. This referral assures that you have the opportunity for follow-up care with a specialist. All of these measure are taken in an effort to provide you with optimal care, which includes your follow-up. Under all circumstances we always encourage you to contact your private physician who remains a resource for coordinating your care. When calling for follow-up care, please make the office aware that this follow-up is from your recent emergency room visit. If for any reason you are refused follow-up, please contact the [facility] Emergency Department at and asked to speak to the emergency department charge nurse. [facility] [address] [place] [id number]
[2018-06-29 16:49] VITALS: BP 120/82
== END 2018-06-29 16:54 | disposition home or self-care (01) ==
LOC: MW.ED 16:12
DX: Z13.9 Encounter for screening, unspecified (principal); J45.909 Unspecified asthma, uncomplicated; Z88.1 Allergy status to other antibiotic agents; Z88.0 Allergy status to penicillin; Z79.899 Other long term (current) drug therapy
CPT/HCPCS: 99283

== ENCOUNTER 2019-09-08 08:47 | Emergency (ER) | payer OTHER ==
[2019-09-08] MEDS ORDERED: Ketorolac 15 MG/ML SDV IVPUSH ONE (09:01)
[2019-09-08] MEDS ORDERED: Sodium Chloride 0.9% 2.5 ML Syringe FLUSH PRN (09:01)
[2019-09-08] MEDS ORDERED: Sodium Chloride 0.9% 1,000 ML IV ONE (09:01)
[2019-09-08] MEDS ORDERED: Sodium Chloride 0.9% 10 ML Syringe FLUSH PRN (09:01)
--- NOTE | 2019-09-08 09:12 | EDM.PDOC ---
ED HPI GENERAL MEDICAL PROBLEM - General Stated Complaint: LWR LT SIDE/ABDOMINAL PAIN Time Seen by Provider: 09/08/19 08:53 - History of Present Illness INITIAL COMMENTS - FREE TEXT/NARRATIVE: History of present illness: 34-year-old female presenting with left-sided lower abdominal pain, ongoing since around 8:00 this morning. She did take a dose of tramadol which has not helped improve her pain. She does report similar pain like this in the past wh en she had a ruptured ovarian cyst. She has had other ovarian cysts as well that she has been able to manage at home, however the last time she had to come to the hospital she had a ruptured cyst. No nausea vomiting or diarrhea, other than she had some transient nausea when the pain was severe. No dysuria or vaginal discharge. LMP 3 weeks ago. Single sexual partner, spouse for 17 years. Review of systems: As per history of present illness and below otherwise all systems reviewed and negative. Past medical history: As per history of present illness and as reviewed below otherwise noncont ributory. Ovarian cysts Surgical history: As per history of present illness and as reviewed below otherwise noncontributory. Social history: No reported history of drug or alcohol abuse. Family history: As per history of present illness and as reviewed below otherwise noncontributory. Physical exam: GEN: no acute distress, well appearing HEENT: Atraumatic, normocephalic, mucous membranes moist, Neck: supple, nontender, trachea midline. Lungs: No respiratory distress. Heart: RRR Abdomen: Soft, diffusely tender (mild), greatest location of tenderness is the left lower quadrant/inguinal area, no rebound or guarding, distended. /pelvic: Performed with [employer] team member. No adnexal tenderness or fullness. No cervical motion tenderness. No cervical erythema. There is mild thin whitish discharge as well as some clumped whitish material. Back: nontender Extremities: Atraumatic. Neurovascularly intact. Neuro: Awake, alert, oriented. Neuro Exam nonfocal. Skin: warm, dry, no lesions Diagnostics: [] Therapeutics: [] MDM: Impression: [] Plan: [] Definitive disposition and diagnosis as appropriate pending reevaluation and review of above. Left Lower Abdomen Pain Score (Numeric/FACES): 10 - Related Data Allergies Allergy/AdvReac Type Severity Reaction Status Date / Time amoxicillin Allergy Hives Verified 09/08/19 09:25 cefaclor [From Ceclor] Allergy Hives Verified 09/08/19 09:25 Home Meds: Home Meds metroNIDAZOLE [Flagyl] 500 mg PO Q12H #14 tab 09/08/19 [Rx] traMADol [Ultram] 50 mg PO ASDIRECTED 09/08/19 [History] Past Medical History - Past Health History Medical/Surgical History: Denies Medical/Surgical History Respiratory History: Reports: Asthma Other Respiratory History: "I had asthma when I was little but I outgrew it" as reported by pt Genitourinary History: Reports: Other (See Below) Other Genitourinary History: left kidney enlarged 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 No vomiting or diarrhea. Labs unremarkable. UA negative. Ultrasound shows free fluid, no other acute pelvic abnormalities. Pelvic exam showed thin whitish discharge which came back positive for Gardnerella. Flagyl was started in the emergency department and prescription sent to the patient's preferred pharmacy. Patient was feeling much better at time of discharge. Stable for outpatient follow-up. Last Recorded V/S: Last Vital Signs Temp 97.3 F 09/08/19 09:00 Pulse 68 09/08/19 11:10 Resp 16 09/08/19 11:10 BP 108/76 09/08/19 11:10 Pulse Ox 100 09/08/19 11:10 - Orders/Labs/Meds Orders: Active Orders 24 hr Category Date Time Status CHLAMYDIA AND GONORRHEA BY TMA Stat Lab 09/08/19 14:15 Received Saline Lock Insert [OM.PC] Stat Oth 09/08/19 09:01 Ordered Labs: Laboratory Tests 09/08/19 09/08/19 09/08/19 Range/Units 08:58 08:58 09:12 WBC 4.12 (4.0-11.0) K/uL RBC 4.21 L (4.30-5.90) M/uL Hgb 12.2 (12.0-16.0) g/dL Hct 36.9 (36.0-46.0) % MCV 87.6 (80.0-98.0) fL MCH 29.0 (27.0-32.0) pg MCHC 33.1 (31.0-37.0) g/dL RDW Std Deviation 42.5 (28.0-62.0) fl RDW Coeff of Catherine 13 (11.0-15.0) % Plt Count 231 (150-400) K/uL MPV 10.80 (7.40-12.00) fL Neut % (Auto) 53.6 (48.0-80.0) % Lymph % (Auto) 36.9 (16.0-40.0) % [place] % (Auto) 7.5 (0.0-15.0) % Eos % (Auto) 1.0 (0.0-7.0) % Baso % (Auto) 1.0 (0.0-1.5) % Neut # (Auto) 2.2 (1.4-5.7) K/uL Lymph # (Auto) 1.5 (0.6-2.4) K/uL [place] # (Auto) 0.3 (0.0-0.8) K/uL Eos # (Auto) 0.0 (0.0-0.7) K/uL Baso # (Auto) 0.0 (0.0-0.1) K/uL Nucleated RBC % 0.0 /100WBC Nucleated RBCs # 0 K/uL Sodium (136-145) mmol/L Potassium (3.5-5.1) mmol/L Chloride (98-107) mmol/L Carbon Dioxide (21.0-32.0) mmol/L BUN (7.0-18.0) mg/dL Creatinine (0.6-1.0) mg/dL Est Cr Clr Drug Dosing mL/min Estimated GFR (MDRD) ml/min Glucose (74-106) mg/dL Calcium (8.5-10.1) mg/dL Total Bilirubin (0.2-1.0) mg/dL AST (15-37) IU/L ALT (14-63) IU/L Alkaline Phosphatase (46-116) U/L Total Protein (6.4-8.2) g/dL Albumin (3.4-5.0) g/dL Globulin (2.6-4.0) g/dL Albumin/Globulin Ratio (0.9-1.6) Urine Color YELLOW Urine Appearance CLEAR Urine pH 5.5 (5.0-8.0) Ur Specific [place] >= 1.030 (1.001-1.035) Urine Protein NEGATIVE (NEGATIVE) mg/dL Urine Glucose (UA) NEGATIVE (NEGATIVE) mg/dL Urine Ketones NEGATIVE (NEGATIVE) mg/dL Urine Occult Blood NEGATIVE (NEGATIVE) Urine Nitrite NEGATIVE (NEGATIVE) Urine Bilirubin NEGATIVE (NEGATIVE) Urine Urobilinogen 0.2 (<2.0) EU/dL Ur Leukocyte Esterase NEGATIVE (NEGATIVE) Urine HCG, Qual NEGATIVE (NEGATIVE) [place] species DNA (NEGATIVE) Gardnerella DNA Probe (NEGATIVE) Trichomonas DNA Probe (NEGATIVE) 09/08/19 09/08/19 Range/Units 09:12 14:10 WBC (4.0-11.0) K/uL RBC (4.30-5.90) M/uL Hgb (12.0-16.0) g/dL Hct (36.0-46.0) % MCV (80.0-98.0) fL MCH (27.0-32.0) pg MCHC (31.0-37.0) g/dL RDW Std Deviation (28.0-62.0) fl RDW Coeff of Catherine (11.0-15.0) % Plt Count (150-400) K/uL MPV (7.40-12.00) fL Neut % (Auto) (48.0-80.0) % Lymph % (Auto) (16.0-40.0) % [place] % (Auto) (0.0-15.0) % Eos % (Auto) (0.0-7.0) % Baso % (Auto) (0.0-1.5) % Neut # (Auto) (1.4-5.7) K/uL Lymph # (Auto) (0.6-2.4) K/uL [place] # (Auto) (0.0-0.8) K/uL Eos # (Auto) (0.0-0.7) K/uL Baso # (Auto) (0.0-0.1) K/uL Nucleated RBC % /100WBC Nucleated RBCs # K/uL Sodium 138 (136-145) mmol/L Potassium 3.8 (3.5-5.1) mmol/L Chloride 103 (98-107) mmol/L Carbon Dioxide 24.0 (21.0-32.0) mmol/L BUN 14 (7.0-18.0) mg/dL Creatinine 1.0 (0.6-1.0) mg/dL Est Cr Clr Drug Dosing 55.10 mL/min Estimated GFR (MDRD) > 60.0 ml/min Glucose 110 H (74-106) mg/dL Calcium 9.2 (8.5-10.1) mg/dL Total Bilirubin 0.5 (0.2-1.0) mg/dL AST 25 (15-37) IU/L ALT 22 (14-63) IU/L Alkaline Phosphatase 50 (46-116) U/L Total Protein 8.0 (6.4-8.2) g/dL Albumin 4.0 (3.4-5.0) g/dL Globulin 4.0 (2.6-4.0) g/dL Albumin/Globulin Ratio 1.0 (0.9-1.6) Urine Color Urine Appearance Urine pH (5.0-8.0) Ur Specific [place] (1.001-1.035) Urine Protein (NEGATIVE) mg/dL Urine Glucose (UA) (NEGATIVE) mg/dL Urine Ketones (NEGATIVE) mg/dL Urine Occult Blood (NEGATIVE) Urine Nitrite (NEGATIVE) Urine Bilirubin (NEGATIVE) Urine Urobilinogen (<2.0) EU/dL Ur Leukocyte Esterase (NEGATIVE) Urine HCG, Qual (NEGATIVE) [place] species DNA NEGATIVE (NEGATIVE) Gardnerella DNA Probe POSITIVE H (NEGATIVE) Trichomonas DNA Probe NEGATIVE (NEGATIVE) Meds: Medications Discontinued Medications Generic Name Dose Route Start Last Admin Trade Name Freq PRN Reason Stop Dose Admin Hydrocodone Bitart/Acetaminophen 1 tab 09/08/19 11:41 09/08/19 11:52 [place] 325-5 Mg PO 09/08/19 11:42 1 tab ONETIME ONE Administration Sodium Chloride 1,000 mls @ 999 mls/hr 09/08/19 09:01 09/08/19 09:12 Normal Saline IV 09/08/19 10:01 999 mls/hr .Bolus ONE Administration Ketorolac Tromethamine 15 mg 09/08/19 09:01 09/08/19 09:14 Toradol IVPUSH 09/08/19 09:02 15 mg ONETIME ONE Administration Ketorolac Tromethamine 15 mg 09/08/19 11:41 09/08/19 11:51 Toradol IVPUSH 09/08/19 11:42 15 mg ONETIME ONE Administration Metronidazole 250 mg 09/08/19 15:28 09/08/19 21:31 Metronidazole PO 09/08/19 15:29 Not Given ONETIME ONE Metronidazole 500 mg 09/08/19 15:31 09/08/19 15:40 Metronidazole PO 09/08/19 15:32 500 mg ONETIME ONE Administration Morphine Sulfate 4 mg 09/08/19 09:13 09/08/19 11:46 Morphine IVPUSH 09/08/19 09:14 Not Given ONETIME ONE Ondansetron HCl 4 mg 09/08/19 09:13 09/08/19 11:46 Zofran IVPUSH 09/08/19 09:14 Not Given ONETIME ONE Sodium Chloride 10 ml 09/08/19 09:01 09/08/19 09:17 Saline Flush FLUSH 10 ml ASDIRECTED PRN Administration Keep Vein Open Sodium Chloride 2.5 ml 09/08/19 09:01 09/08/19 09:17 Saline Flush FLUSH 2.5 ml ASDIRECTED PRN Administration Keep Vein Open - Re-Assessments/Exams Free Text/Narrative Re-Assessment/Exam: 09/08/19 11:33 Patient feeling slightly better. Still having pain. Additional medication ordered. 09/08/19 13:15 Patient feeling well. Pelvic exam performed. 09/08/19 15:33 Genital swabs resulted. Gardnerella positive. Flagyl will be given. Departure - Departure Time of Disposition: 15:34 Disposition: Home, Self-Care 01 Clinical Impression: Bacterial vaginosis Abdominal pain Qualifiers: Abdominal location: left lower quadrant Qualified Code(s): R10.32 - Left lower quadrant pain - Discharge Information Prescriptions: metroNIDAZOLE [Flagyl] 500 mg PO Q12H #14 tab Instructions: Antibiotic Medicine, Adult, [id number], Pelvic Pain, Female, Bacterial Vaginosis, [id number], Abdominal Pain, Adult, [id number] Referrals: Obdulio Garcia MD [Primary Care Provider] - 2 Days Forms: ED Department Discharge Additional Instructions: The following information is given to patients seen in the emergency department who are being discharged to home. This information is to outline your options for follow-up care. We provide all patients seen in our emergency department with a follow-up referral. The need for follow-up, as well as the timing and circumstances, are variable depending upon the specifics of your emergency department visit. If you don't have a primary care physician on staff, we will provide you with a referral. We always advise you to contact your personal physician following an emergency department visit to inform them of the circumstance of the visit and for follow-up with them and/or the need for any referrals to a consulting specialist. The emergency department will also refer you to a specialist when appropriate. This referral assures that you have the opportunity for follow-up care with a specialist. All of these measure are taken in an effort to provide you with optimal care, which includes your follow-up. Under all circumstances we always encourage you to contact your private physician who remains a resource for coordinating your care. When calling for follow-up care, please make the office aware that this follow-up is from your recent emergency room visit. If for any reason you are refused follow-up, please contact the [facility] Emergency Department at and asked to speak to the emergency department charge nurse. - My Orders Last 24 Hours: My Active Orders 09/08/19 09:01 Saline Lock Insert [OM.PC] Stat 09/08/19 14:15 CHLAMYDIA AND GONORRHEA BY TMA Stat - Assessment/Plan Last 24 Hours: My Active Orders 09/08/19 09:01 Saline Lock Insert [OM.PC] Stat 09/08/19 14:15 CHLAMYDIA AND GONORRHEA BY TMA Stat
[2019-09-08] MEDS ORDERED: Morphine 4 MG/ML Syringe IVPUSH ONE (09:13)
[2019-09-08] MEDS ORDERED: Ondansetron 4 MG/2 ML SDV IVPUSH ONE (09:13)
[2019-09-08 09:51] LABS: BLOOD UREA NITROGEN,BUN 14 mg/dL (7.0-18.0); CHLORIDE,CL 103 mmol/L (98-107); GLUCOSE RANDOM 110 mg/dL (74-106); POTASSIUM,K 3.8 mmol/L (3.5-5.1); SODIUM,NA 138 mmol/L (136-145)
--- NOTE | 2019-09-08 10:46 | US ---
Pelvic ultrasound: Multiple real-time images were obtained transabdominally and transvaginally. Comparison: No prior pelvic ultrasound is available, previous CT abdomen and pelvis study of 06/06/19 is available. Uterus is neutral in position. Endometrial thickness measures 9 mm. Small amount of free fluid is seen. Follicles are seen within both ovaries. Nabothian cysts are noted within the cervix. Measurements: Uterus: Length 8.3 cm, AP height 4.2 cm, transverse width 6.4 cm Right ovary: 2.1 x 1.2 x 1.8 cm Left ovary: 2.8 x 1.7 x 2.6 cm Impression: 1. Small amount of free fluid most likely physiologic in etiology. 2. Nabothian cysts. 3. No additional abnormality is seen on pelvic ultrasound exam. Diagnostic code #2 This report was dictated in MDT
[2019-09-08 11:10] VITALS: BP 108/76; PULSE 68
[2019-09-08] MEDS ORDERED: Ketorolac 30 MG/ML SDV IVPUSH ONE (11:41)
[2019-09-08] MEDS ORDERED: Acetaminophen/HYDROcodone 325-5 MG Tab PO ONE (11:41)
[2019-09-08] MEDS ORDERED: metroNIDAZOLE 250 MG Tab PO ONE ×2 (15:28→15:31)
[2019-09-11 12:02] LABS: C.TRACHOMATIS BY TMA Negative (Negative); N.GONORRHOEAE BY TMA Negative (Negative)
== END 2019-09-08 15:45 | disposition home or self-care (01) ==
LOC: MW.ED 08:47
DX: N76.0 Acute vaginitis (principal); Z88.1 Allergy status to other antibiotic agents
CPT/HCPCS: 76856; 80053; 81003; 81025; 85025; 87480; 87491; 87510; 87591; 87660; 96374; 96376; 99284; A9270; J1885; J7030; 99283

== ENCOUNTER 2020-04-07 09:43 | Emergency (ER) | payer OTHER ==
--- NOTE | 2020-04-07 10:08 | EDM.PDOC ---
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 She reports she has a history of ovarian cyst and the pain does feel typical for her previous cyst pain. LMP 03/30/2020 and describes it as "normal". Denies any fever, chills, headache, change in vision, near syncope or syncope. Denies any chest pain, SOB, cough or hemoptysis. Denies any n/v/d or constipation. Denies any concern for . Has been eating and drinking well. Denies any recent injury, trauma or falls. Review of systems: As per history of present illness and below otherwise all systems reviewed and negative. Past medical history: As per history of present illness and as reviewed below otherwise noncontributory. Surgical history: As per history of present illness and as reviewed below otherwise noncontributory. Social history: See social history for further information Family history: As per history of present illness and as reviewed below otherwise noncontributory. Physical exam: General: Well developed and well nourished 34-year-old female. Alert and orientated x 3. Nontoxic in appearance and in no acute distress. Vital signs are stable and have been reviewed by me. Nursing notes were reviewed. HEENT: Atraumatic, normocephalic, pupils equal and reactive bilaterally, negative for conjunctival pallor or scleral icterus, mucous membranes moist, nontender, trachea midline. No drooling or trismus noted. No meningeal signs. No hot potato voice noted. Lungs: Clear to auscultation bilaterally. No wheezes, rales, or rhonchi. Chest nontender. Normal work of breathing, no accessory muscles used. Heart: S1S2, regular rate and rhythm without overt murmur, gallops, or rubs. No JVD. No peripheral edema Abdomen: Soft, nondistended, nontender. Normoactive bowel sounds. Negative for masses or costovertebral tenderness. Pelvis: Stable nontender. 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 Normal appearing external genitalia. Moderate amount of milky white discharge in the vaginal vault. Swabs obtained and sent to lab. Mild cervical motion tenderness, negative chandelere sign. No adenexal mass or tenderness. Skin: Intact, warm, dry. No lesions or rashes noted. Hematologic: No petechiae or purpra. Mucosa appropriate color and normal nail bed color and refill. Extremities: Atraumatic, moves all extremities per self without difficulty or deficits, negative for cords or calf pain. Neurovascular unremarkable. Neuro: Awake, alert, oriented. Cranial nerves II through XII unremarkable. Cerebellum unremarkable. Motor and sensory unremarkable throughout. Exam nonfocal. Psychiatric: Mood and affect are appropriate. Normal thought process. Answering questions appropriately. Notes: *This patient was seen and evaluated during the 2019 SARS-CoV-2 novel coronavirus pandemic period. Community viral transmission is ongoing at time of this encounter and the emergency department is operating under pandemic response procedures. Ultrasound shows neither ovary was visualized secondary to bowel gas. Otherwise unremarkable pelvic ultrasound. No specific finding to explain left-sided pain. Negative JARON. CT shows no acute findings in the abdomen or pelvis. Moderate to large amount of stool throughout the colon. I have talked with the patient about today's findings, in addition to providing specific details for plan of care. I did inform her I was concerned the amount of discharge she had in the vaginal vault, she does admit that she just had sex this morning and is likely due to the intercourse. We discussed that the gonorrhea/chlamydia is a send out and I did offer to treat her with Rocephin/doxycycline, she declined, stating she will wait for the lab results. She states her pain has improved rating it a 2/10. With her scan showing moderate stool - I did offer her to do an enema or provide her with MiraLAX while here, she states she does have medications at home that will assist in having a bowel movement (Last BM was 2-3 days ago). She would like to be discharged to home. Reassessment at the time of disposition demonstrates that the patient is in no acute distress. The patient is stable for discharge, counseling was provided and we discussed in great detail signs and symptoms that would prompt them to return to the Emergency Department. Medication, follow up and supportive care measures were reviewed and discussed. Voices understanding and is agreeable to plan of care. Denies any further questions or concerns at this time. Diagnostics: CBC, CMP, UA, Pelvic U/S, dez/chlamydia, JARON [employer]: IV fluids, Toradol, Zofran Prescription: None Impression: Abdominal Pain Constipation Plan: 1. Today your lab work was within normal limits. We discussed that a few of your labs are send outs, we will call you if those require antibiotics. Your CT scan shows moderate to large amount of stool in the colon. Please take a stool softener or Miralax to assist in facilitating a bowel movement. If your symptoms should worsen, new symptoms develop or any of the signs and symptoms we discussed should arise please return to the emergency room or call 911 (if needed). 2. You can alternate Tylenol and ibuprofen as needed for pain and fever management. 3. We encourage you to follow up with your primary care provider and/or r ecommended specialist in the next few days for re-evaluation and further care/management. Definitive disposition and diagnosis as appropriate pending reevaluation and review of above. Left pelvic Pain Score (Numeric/FACES): 10 - Related Data Allergies Allergy/AdvReac Type Severity Reaction Status Date / Time amoxicillin Allergy Hives Verified 04/07/20 09:55 cefaclor [From Ceclor] Allergy Hives Verified 04/07/20 09:55 latex Allergy Hives Verified 04/07/20 09:56 Home Meds: Home Meds . [No Known Home Meds] 04/07/20 [History] Past Medical History - Past Health History Medical/Surgical History: Denies Medical/Surgical History HEENT History: Reports: None Cardiovascular History: Reports: None Respiratory History: Reports: Asthma Other Respiratory History: "I had asthma when I was little but I outgrew it" as reported by pt Gastrointestinal History: Reports: None Genitourinary History: Reports: Other (See Below) Other Genitourinary History: left kidney enlarged OCCUPATIONAL NURSE History: Reports: Other OCCUPATIONAL NURSE History: ovarian cysts Musculoskeletal History: Reports: None Neurological History: Reports: Head Trauma Psychiatric History: Reports: None Endocrine/Metabolic History: Reports: None Hematologic History: Reports: None Immunologic History: Reports: None Oncologic (Cancer) History: Reports: None Dermatologic History: Reports: None - Infectious Disease History Infectious Disease History: Reports: Chicken Pox - Past Surgical History Head Surgeries/Procedures: Reports: None Respiratory Surgical History: Reports: None Female Surgical History: Reports: Section Social & Family History - Family History Family Medical History: No Pertinent Family History - Tobacco Use Tobacco Use Status *Q: Never Tobacco User - Caffeine Use Caffeine Use: Reports: None Caffeine Use Comment: "rarely" - Recreational Drug Use Recreational Drug Use: No ED ROS GENERAL - Review of Systems Review Of Systems: Comprehensive ROS is negative, except as noted in HPI. ED EXAM, RENAL/ - Physical Exam Exam: See Below (See dictation) Course - Vital Signs Last Recorded V/S: Last Vital Signs Temp 98.0 F 04/07/20 09:56 Pulse 62 04/07/20 13:07 Resp 17 04/07/20 11:53 BP 107/71 04/07/20 13:07 Pulse Ox 95 04/07/20 13:07 - Orders/Labs/Meds Orders: Active Orders 24 hr Category Date Time Status CHLAMYDIA AND GONORRHEA BY TMA Stat Lab 04/07/20 10:45 Received Labs: Laboratory Tests 04/07/20 04/07/20 04/07/20 Range/Units 10:11 10:11 10:45 WBC 4.49 (4.0-11.0) K/uL RBC 4.08 L (4.30-5.90) M/uL Hgb 11.4 L (12.0-16.0) g/dL Hct 35.9 L (36.0-46.0) % MCV 88.0 (80.0-98.0) fL MCH 27.9 (27.0-32.0) pg MCHC 31.8 (31.0-37.0) g/dL RDW Std Deviation 44.2 (28.0-62.0) fl RDW Coeff of Catherine 14 (11.0-15.0) % Plt Count 231 (150-400) K/uL MPV 11.30 (7.40-12.00) fL Neut % (Auto) 57.5 (48.0-80.0) % Lymph % (Auto) 34.7 (16.0-40.0) % Cocke % (Auto) 6.7 (0.0-15.0) % Eos % (Auto) 0.7 (0.0-7.0) % Baso % (Auto) 0.4 (0.0-1.5) % Neut # (Auto) 2.6 (1.4-5.7) K/uL Lymph # (Auto) 1.6 (0.6-2.4) K/uL Cocke # (Auto) 0.3 (0.0-0.8) K/uL Eos # (Auto) 0.0 (0.0-0.7) K/uL Baso # (Auto) 0.0 (0.0-0.1) K/uL Nucleated RBC % 0.0 /100WBC Nucleated RBCs # 0 K/uL Sodium 139 (136-145) mmol/L Potassium 4.0 (3.5-5.1) mmol/L Chloride 104 (98-107) mmol/L Carbon Dioxide 23.5 (21.0-32.0) mmol/L BUN 11 (7.0-18.0) mg/dL Creatinine 1.0 (0.6-1.0) mg/dL Est Cr Clr Drug Dosing 53.98 mL/min Estimated GFR (MDRD) > 60.0 ml/min Glucose 88 (74-106) mg/dL Calcium 8.3 L (8.5-10.1) mg/dL Total Bilirubin 0.6 (0.2-1.0) mg/dL AST 20 (15-37) IU/L ALT 17 (14-63) IU/L Alkaline Phosphatase 45 L (46-116) U/L Total Protein 7.4 (6.4-8.2) g/dL Albumin 3.4 (3.4-5.0) g/dL Globulin 4.0 (2.6-4.0) g/dL Albumin/Globulin Ratio 0.9 (0.9-1.6) Urine Color Urine Appearance Urine pH (5.0-8.0) Ur Specific [place] (1.001-1.035) Urine Protein (NEGATIVE) mg/dL Urine Glucose (UA) (NEGATIVE) mg/dL Urine Ketones (NEGATIVE) mg/dL Urine Occult Blood (NEGATIVE) Urine Nitrite (NEGATIVE) Urine Bilirubin (NEGATIVE) Urine Urobilinogen (<2.0) EU/dL Ur Leukocyte Esterase (NEGATIVE) Urine HCG, Qual (NEGATIVE) [place] species DNA NEGATIVE (NEGATIVE) Gardnerella DNA Probe NEGATIVE (NEGATIVE) Trichomonas DNA Probe NEGATIVE (NEGATIVE) 04/07/20 04/07/20 Range/Units 12:37 12:37 WBC (4.0-11.0) K/uL RBC (4.30-5.90) M/uL Hgb (12.0-16.0) g/dL Hct (36.0-46.0) % MCV (80.0-98.0) fL MCH (27.0-32.0) pg MCHC (31.0-37.0) g/dL RDW Std Deviation (28.0-62.0) fl RDW Coeff of Catherine (11.0-15.0) % Plt Count (150-400) K/uL MPV (7.40-12.00) fL Neut % (Auto) (48.0-80.0) % Lymph % (Auto) (16.0-40.0) % Cocke % (Auto) (0.0-15.0) % Eos % (Auto) (0.0-7.0) % Baso % (Auto) (0.0-1.5) % Neut # (Auto) (1.4-5.7) K/uL Lymph # (Auto) (0.6-2.4) K/uL Cocke # (Auto) (0.0-0.8) K/uL Eos # (Auto) (0.0-0.7) K/uL Baso # (Auto) (0.0-0.1) K/uL Nucleated RBC % /100WBC Nucleated RBCs # K/uL Sodium (136-145) mmol/L Potassium (3.5-5.1) mmol/L Chloride (98-107) mmol/L Carbon Dioxide (21.0-32.0) mmol/L BUN (7.0-18.0) mg/dL Creatinine (0.6-1.0) mg/dL Est Cr Clr Drug Dosing mL/min Estimated GFR (MDRD) ml/min Glucose (74-106) mg/dL Calcium (8.5-10.1) mg/dL Total Bilirubin (0.2-1.0) mg/dL AST (15-37) IU/L ALT (14-63) IU/L Alkaline Phosphatase (46-116) U/L Total Protein (6.4-8.2) g/dL Albumin (3.4-5.0) g/dL Globulin (2.6-4.0) g/dL Albumin/Globulin Ratio (0.9-1.6) Urine Color YELLOW Urine Appearance CLEAR Urine pH 8.0 (5.0-8.0) Ur Specific [place] 1.010 (1.001-1.035) Urine Protein NEGATIVE (NEGATIVE) mg/dL Urine Glucose (UA) NEGATIVE (NEGATIVE) mg/dL Urine Ketones NEGATIVE (NEGATIVE) mg/dL Urine Occult Blood NEGATIVE (NEGATIVE) Urine Nitrite NEGATIVE (NEGATIVE) Urine Bilirubin NEGATIVE (NEGATIVE) Urine Urobilinogen 0.2 (<2.0) EU/dL Ur Leukocyte Esterase NEGATIVE (NEGATIVE) Urine HCG, Qual NEGATIVE (NEGATIVE) [place] species DNA (NEGATIVE) Gardnerella DNA Probe (NEGATIVE) Trichomonas DNA Probe (NEGATIVE) Meds: Medications Discontinued Medications Generic Name Dose Route Start Last Admin Trade Name Freq PRN Reason Stop Dose Admin Sodium Chloride 1,000 mls @ 999 mls/hr 04/07/20 10:34 04/07/20 10:48 Normal Saline IV 04/07/20 11:34 999 mls/hr STAT ONE Administration Iopamidol 54 ml 04/07/20 11:43 04/07/20 11:43 Isovue Multipack-370 (76%) IVPUSH 04/07/20 11:44 54 ml ONETIME ONE Administration Ketorolac Tromethamine 60 mg 04/07/20 10:14 04/07/20 10:51 Toradol IM 04/07/20 10:15 Not Given ONETIME ONE Ketorolac Tromethamine 30 mg 04/07/20 10:41 04/07/20 10:49 Toradol IVPUSH 04/07/20 10:42 30 mg ONETIME ONE Administration Morphine Sulfate 4 mg 04/07/20 10:33 04/07/20 10:51 Morphine IVPUSH 04/07/20 10:34 Not Given ONETIME ONE Ondansetron HCl 4 mg 04/07/20 10:33 04/07/20 10:48 Zofran IVPUSH 04/07/20 10:34 4 mg ONETIME ONE Administration Departure - Departure Time of Disposition: 12:52 Disposition: Home, Self-Care 01 Clinical Impression: Abdominal pain Qualifiers: Abdominal location: left lower quadrant Qualified Code(s): R10.32 - Left lower quadrant pain Constipation Qualifiers: Constipation type: unspecified constipation type Qualified Code(s): K59.00 - Constipation, unspecified - Discharge Information Instructions: Constipation, Adult, [id number], Abdominal Pain, Adult, [id number] Referrals: Obdulio Garcia MD [Primary Care Provider] - Forms: ED Department Discharge Additional Instructions: The following information is given to patients seen in the emergency department who are being discharged to home. This information is to outline your options for follow-up care. We provide all patients seen in our emergency department with a follow-up referral. The need for follow-up, as well as the timing and circumstances, are variable depending upon the specifics of your emergency department visit. If you don't have a primary care physician on staff, we will provide you with a referral. We always advise you to contact your personal physician following an emergency department visit to inform them of the circumstance of the visit and for follow-up with them and/or the need for any referrals to a consulting specialist. The emergency department will also refer you to a specialist when appropriate. This referral assures that you have the opportunity for follow-up care with a specialist. All of these measure are taken in an effort to provide you with optimal care, which includes your follow-up. Under all circumstances we always encourage you to contact your private physician who remains a resource for coordinating your care. When calling for follow-up care, please make the office aware that this follow-up is from your recent emergency room visit. If for any reason you are refused follow-up, please contact the [facility] Emergency Department at and asked to speak to the emergency department charge nurse. [facility] [address] [place] [id number] [address] Thank you for choosing the [facility] emergency department in [place] for your medical needs today. It was a pleasure caring for you. Today you were seen in the emergency department for abdominal pain. 1. Today your lab work was within normal limits. We discussed that a few of your labs are send outs, we will call you if those require antibiotics. Your CT scan shows moderate to large amount of stool in the colon. Please take a stool softener or Miralax to assist in facilitating a bowel movement. If your symptoms should worsen, new symptoms develop or any of the signs and symptoms we discussed should arise please return to the emergency room or call 911 (if needed). 2. You can alternate Tylenol and ibuprofen as needed for pain and fever management. 3. We encourage you to follow up with your primary care provider and/or recommended specialist in the next few days for re-evaluation and further care/management. Sepsis Event Note (ED) - Evaluation Sepsis Screening Result: No Definite Risk - Focused Exam Vital Signs: Vital Signs Temp Pulse Resp BP Pulse Ox 04/07/20 13:07 62 107/71 95 04/07/20 11:53 56 L 17 116/65 98 04/07/20 11:30 58 L 17 111/65 98 04/07/20 10:53 55 L 17 112/61 98 04/07/20 09:56 98.0 F 82 18 115/86 98 - My Orders Last 24 Hours: My Active Orders 04/07/20 10:45 CHLAMYDIA AND GONORRHEA BY TMA Stat - Assessment/Plan Last 24 Hours: My Active Orders 04/07/20 10:45 CHLAMYDIA AND GONORRHEA BY TMA Stat
[2020-04-07] MEDS ORDERED: Ketorolac 60 MG/2 ML SDV IM ONE (10:14)
[2020-04-07] MEDS ORDERED: Morphine 4 MG/ML Syringe IVPUSH ONE (10:33)
[2020-04-07] MEDS ORDERED: Ondansetron 4 MG/2 ML SDV IVPUSH ONE (10:33)
[2020-04-07] MEDS ORDERED: Sodium Chloride 0.9% 1,000 ML IV ONE (10:34)
[2020-04-07] MEDS ORDERED: Ketorolac 30 MG/ML SDV IVPUSH ONE (10:41)
[2020-04-07 11:00] LABS: BLOOD UREA NITROGEN,BUN 11 mg/dL (7.0-18.0); CARBON DIOXIDE,CO2 23.5 mmol/L (21.0-32.0); CHLORIDE,CL 104 mmol/L (98-107); GLUCOSE RANDOM 88 mg/dL (74-106); SODIUM,NA 139 mmol/L (136-145)
--- NOTE | 2020-04-07 11:22 | US ---
INDICATION: Left lower quadrant abdomen pain. TECHNIQUE: Ultrasound pelvis transvaginal for better assessment or to better visualize the endometrium. Real-time sonographic images with spectral and color Doppler imaging of the ovaries were obtained. COMPARISON: None FINDINGS: Uterus: 7 x 5 x 4 cm. Normal echotexture of the myometrium. No masses. Few small nabothian cysts present. Endometrium: Transvaginal imaging was performed to better evaluate the endometrium. Endometrial thickness measures 8 mm. No sign of endometrial mass or significant fluid. Neither ovary was visualized. No adnexal masses. Cul-de-sac: No significant free fluid. IMPRESSION: Neither ovary was visualized secondary to bowel gas. Otherwise unremarkable pelvic ultrasound. No specific finding to explain left-sided pain. Dictated by Brandon Dong MD @ Apr 07 2020 11:18AM Signed by Dr. Brandon Dong @ Apr 07 2020 11:21AM
[2020-04-07] MEDS ORDERED: Iopamidol 755 MG/ML 500 ML Multipack Bottle IVPUSH ONE (11:43)
--- NOTE | 2020-04-07 12:41 | CT ---
INDICATION: Left lower quadrant pain, history of ruptured cyst. TECHNIQUE: CT of the abdomen and pelvis with 54 cc Isovue 370 IV contrast. Coronal and sagittal reconstructions. COMPARISON: CT of the abdomen and pelvis 06/06/2019. FINDINGS: Stable small left hepatic cyst. Hepatic and portal veins are patent. The gallbladder, spleen, pancreas, and adrenal glands are negative. Symmetric enhancement of the kidneys. No hydronephrosis. No obstructing urinary calculi. The bladder and uterus are normal in appearance. Small physiologic follicles are visualized within both ovaries. No bowel dilatation. Moderate to large amount of stool throughout the colon. Negative appendix. No intraperitoneal free air or fluid. No lymphadenopathy. Stable small benign bone island in the posterior right iliac bone. The bones are otherwise unremarkable. The lung bases are clear. IMPRESSION: 1. No acute findings in the abdomen or pelvis. 2. Moderate to large amount of stool throughout the colon. Please note that all CT scans at this facility use dose modulation, iterative reconstruction, and/or weight-based dosing when appropriate to reduce radiation dose to as low as reasonably achievable. Dictated by Radha Hernandes MD @ Apr 07 2020 12:31PM Signed by Dr. Radha Hernandes @ Apr 07 2020 12:40PM
[2020-04-07 13:07] VITALS: BP 107/71; PULSE 62
[2020-04-08 14:07] LABS: C.TRACHOMATIS BY TMA Negative (Negative); N.GONORRHOEAE BY TMA Negative (Negative)
== END 2020-04-07 13:07 | disposition home or self-care (01) ==
LOC: MW.ED 09:43
DX: K59.00 Constipation, unspecified (principal); J45.909 Unspecified asthma, uncomplicated; Z88.0 Allergy status to penicillin; Z88.1 Allergy status to other antibiotic agents; Z91.040 Latex allergy status
CPT/HCPCS: 36415; 74177; 76830; 80053; 81003; 81025; 85025; 87480; 87491; 87510; 87591; 87660; 96374; 96375; 99284; J1885; J2405; J7030; Q9967; 99283

== ENCOUNTER 2021-04-20 05:44 | Emergency (ER) | payer BC, OTHER ==
[2021-04-20] MEDS: Sodium Chloride 0.9% 1,000 ML IV ONE (06:20)
[2021-04-20] MEDS: Ketorolac 30 MG/ML SDV IVPUSH ONE (06:20)
[2021-04-20] MEDS: Ondansetron 4 MG/2 ML SDV IVPUSH ONE (06:20)
[2021-04-20 06:47] LABS: BLOOD UREA NITROGEN,BUN 12 mg/dL (7.0-18.0); CARBON DIOXIDE,CO2 24.4 mmol/L (21.0-32.0); CHLORIDE,CL 104 mmol/L (98-107); GLUCOSE RANDOM 85 mg/dL (74-106); POTASSIUM,K 3.6 mmol/L (3.5-5.1); SODIUM,NA 140 mmol/L (136-145)
[2021-04-20] MEDS: Ciprofloxacin 500 MG Tab PO ONE (08:03)
[2021-04-20 08:08] VITALS: BP 104/65; PULSE 60
== END 2021-04-20 08:00 | disposition home or self-care (01) ==
LOC: MW.ED 05:44
DX: N39.0 Urinary tract infection, site not specified (principal); Z88.0 Allergy status to penicillin; Z91.040 Latex allergy status; Z88.1 Allergy status to other antibiotic agents
CPT/HCPCS: 36415; 80053; 81001; 81025; 85025; 96374; 96375; 99284; J1885; J2405; J7030

== ENCOUNTER 2021-05-18 11:54 | Emergency (ER) | payer BC ==
[2021-05-18] MEDS ORDERED: Ketorolac 30 MG/ML SDV IVPUSH ONE (12:29)
[2021-05-18] MEDS ORDERED: diphenhydrAMINE 50 MG/ML SDV IVPUSH ONE (12:29)
[2021-05-18] MEDS ORDERED: Metoclopramide 10 MG/2 ML SDV IVPUSH ONE (12:29)
[2021-05-18] MEDS ORDERED: Sodium Chloride 0.9% 1,000 ML IV ONE (12:29)
[2021-05-18 13:33] LABS: BLOOD UREA NITROGEN,BUN 12 mg/dL (7.0-18.0); CARBON DIOXIDE,CO2 22.5 mmol/L (21.0-32.0); CHLORIDE,CL 106 mmol/L (98-107); GLUCOSE RANDOM 81 mg/dL (74-106); POTASSIUM,K 3.6 mmol/L (3.5-5.1); SODIUM,NA 139 mmol/L (136-145)
[2021-05-18 14:23] LABS: CORONAVIRUS COVID-19 NAA NEGATIVE (NEGATIVE); INFLUENZA A NAA NEGATIVE (NEGATIVE); INFLUENZA B NAA NEGATIVE (NEGATIVE)
[2021-05-18 14:36] VITALS: BP 118/76; PULSE 67
== END 2021-05-18 14:37 | disposition home or self-care (01) ==
LOC: MW.ED 11:54
DX: M79.10 Myalgia, unspecified site (principal); Z20.822 Contact with and (suspected) exposure to COVID-19; Z88.0 Allergy status to penicillin; Z91.040 Latex allergy status; Z88.8 Allergy status to other drugs, medicaments and biological substances
CPT/HCPCS: 0240U; 36415; 80053; 85025; 96374; 96375; 99283; J1200; J1885; J2765; J7030

== ENCOUNTER 2021-08-16 17:44 | Emergency (ER) | payer BC ==
[2021-08-16] MEDS ORDERED: Ketorolac 30 MG/ML SDV IM ONE (18:35)
[2021-08-16 18:51] VITALS: BP 135/77; PULSE 72
== END 2021-08-16 19:24 | disposition home or self-care (01) ==
LOC: MW.ED 17:44
DX: M26.622 Arthralgia of left temporomandibular joint (principal); Z88.0 Allergy status to penicillin; Z91.040 Latex allergy status; Z88.1 Allergy status to other antibiotic agents
CPT/HCPCS: 96372; 99283; J1885

== ENCOUNTER 2022-03-25 15:37 | Emergency (ER) | payer BC ==
[2022-03-25] MEDS ORDERED: Ketorolac 60 MG/2 ML SDV IM ONE (17:17)
[2022-03-25 17:50] LABS: CARBON DIOXIDE,CO2 22.9 mmol/L (21.0-32.0); POTASSIUM,K 3.7 mmol/L (3.5-5.1)
[2022-03-25] MEDS ORDERED: Ciprofloxacin 500 MG Tab PO ONE (17:56)
[2022-03-25 19:09] VITALS: BP 129/67; PULSE 78
== END 2022-03-25 19:09 | disposition home or self-care (01) ==
LOC: MW.ED 15:37
DX: N39.0 Urinary tract infection, site not specified (principal); J45.909 Unspecified asthma, uncomplicated; Z88.0 Allergy status to penicillin; Z88.1 Allergy status to other antibiotic agents; Z91.040 Latex allergy status
CPT/HCPCS: 36415; 76856; 80053; 81001; 81025; 83690; 85025; 87086; 96372; 99284; A9270; J1885; 99283

== ENCOUNTER 2022-07-02 19:04 | Emergency (ER) | payer BC ==
[2022-07-02] MEDS ORDERED: Sodium Chloride 0.9% 1,000 ML IV ONE ×2 (19:54→21:37)
[2022-07-02] MEDS ORDERED: Ondansetron 4 MG/2 ML SDV IVPUSH ONE (19:54)
[2022-07-02 20:08] LABS: BASOPHILS PERCENT AUTO 0.2 % (0.0-1.5); EOSINOPHILS PERCENT AUTO 0.5 % (0.0-7.0); LYMPHOCYTES ABSOLUTE AUTO 0.5 K/uL (0.6-2.4); LYMPHOCYTES PERCENT AUTO 7.6 % (16.0-40.0); MEAN CORPUSCULAR HEMOGLOBIN 27.6 pg (27.0-32.0); MEAN CORPUSCULAR HGB CONC 32.4 g/dL (31.0-37.0); MEAN CORPUSCULAR VOLUME 85.3 fL (80.0-98.0); MONOCYTES ABSOLUTE AUTO 0.2 K/uL (0.0-0.8); MONOCYTES PERCENT AUTO 3.5 % (0.0-15.0); NEUTROPHILS ABSOLUTE AUTO 5.6 K/uL (1.4-5.7); NEUTROPHILS PERCENT AUTO 88.2 % (48.0-80.0); NRBC ABSOLUTE 0 K/uL; PLATELET COUNT,PLT 188 K/uL (150-400); RED BLOOD CELL COUNT 4.34 M/uL (4.30-5.90); WHITE BLOOD CELL COUNT,WBC 6.35 K/uL (4.0-11.0)
[2022-07-02 20:33] LABS: ALBUMIN 3.5 g/dL (3.4-5.0); CALCIUM 8.6 mg/dL (8.5-10.1); CARBON DIOXIDE,CO2 24.2 mmol/L (21.0-32.0); CREATININE 1.1 mg/dL (0.6-1.0); EST CRCL DRUG DOSING (CG) 47.63 mL/min; POTASSIUM,K 3.8 mmol/L (3.5-5.1); PROTEIN TOTAL,TP 7.1 g/dL (6.4-8.2)
[2022-07-02 21:16] LABS: BILIRUBIN,URINE NEGATIVE (NEGATIVE); COLOR,URINE YELLOW; GLUCOSE,URINE NEGATIVE (NEGATIVE); KETONES,URINE NEGATIVE (NEGATIVE); LEUKOCYTE ESTERASE,URINE MODERATE (NEGATIVE); NITRITE,URINE POSITIVE (NEGATIVE); OCCULT BLOOD,URINE NEGATIVE (NEGATIVE); PH,URINE 5.5 (5.0-8.0); PROTEIN,URINE NEGATIVE (NEGATIVE); UROBILINOGEN,URINE 0.2 EU/dL (<2.0)
[2022-07-02 21:31] LABS: APPEARANCE,URINE HAZY; BACTERIA,URINE 1+ (NEGATIVE); EPITHELIAL CELLS,URINE FEW (NONE-FEW); RBC,URINE 0-1 (0-2/HPF); WBC,URINE 15-20 (0-5/HPF)
[2022-07-02 21:32] LABS: MUCUS,URINE LIGHT (NONE-MOD)
[2022-07-02] MEDS ORDERED: Sulfamethoxazole/Trimethoprim 800-160 MG Tab PO ONE (21:58)
[2022-07-02 22:34] VITALS: BP 102/65; PULSE 78
== END 2022-07-02 22:34 | disposition home or self-care (01) ==
LOC: MW.ED 19:04
DX: K52.9 Noninfective gastroenteritis and colitis, unspecified (principal); R82.71 Bacteriuria; Z88.0 Allergy status to penicillin; Z91.040 Latex allergy status; Z88.5 Allergy status to narcotic agent; Z88.1 Allergy status to other antibiotic agents
CPT/HCPCS: 36415; 80053; 81001; 81025; 83690; 85025; 87086; 87088; 87186; 96361; 96374; 99284; A9270; J2405; J7030; 99283

== ENCOUNTER 2023-01-30 16:17 | Emergency (ER) | payer BC ==
[2023-01-30] MEDS ORDERED: LORazepam 2 MG/ML SDV IVPUSH ONE (16:36)
[2023-01-30] MEDS ORDERED: fentaNYL 50 MCG/ML SDV IVPUSH ONE (16:36)
[2023-01-30 17:03] LABS: BASOPHILS ABSOLUTE AUTO 0.05 K/uL (0.00-0.20); BASOPHILS PERCENT AUTO 1.1 % (0.0-1.0); EOSINOPHILS ABSOLUTE AUTO 0.03 K/uL (0.00-0.45); EOSINOPHILS PERCENT AUTO 0.7 % (0.0-6.0); HEMATOCRIT 42.1 % (37.0-47.0); HEMOGLOBIN 14.1 g/dL (12.0-16.0); IMMATURE GRAN ABSOLUTE AUTO 0.01 K/uL (0.00-0.05); IMMATURE GRAN PERCENT AUTO 0.2 % (0.0-0.4); LYMPHOCYTES ABSOLUTE AUTO 1.64 K/uL (1.00-4.80); LYMPHOCYTES PERCENT AUTO 36.2 % (24.0-44.0); MEAN CORPUSCULAR HEMOGLOBIN 29.4 pg (28.0-32.0); MEAN CORPUSCULAR HGB CONC 33.5 g/dL (32.0-36.0); MEAN CORPUSCULAR VOLUME 87.7 fL (83.0-99.0); MEAN PLATELET VOLUME 11.4 fL (9.4-12.3); MONOCYTES ABSOLUTE AUTO 0.35 K/uL (0.00-0.80); MONOCYTES PERCENT AUTO 7.7 % (0.0-8.0); NEUTROPHILS ABSOLUTE AUTO 2.45 K/uL (1.80-7.70); NEUTROPHILS PERCENT AUTO 54.1 % (41.0-71.0); PLATELET COUNT,PLT 210 K/uL (150-400); WHITE BLOOD CELL COUNT,WBC 4.53 K/uL (3.9-11.3)
[2023-01-30 17:33] LABS: ALBUMIN 4.3 g/dL (3.4-5.0); BILIRUBIN TOTAL 0.7 mg/dL (0.2-1.0); CALCIUM 9.8 mg/dL (8.5-10.1); CARBON DIOXIDE,CO2 23.8 mmol/L (21.0-32.0); CREATININE 1.3 mg/dL (0.6-1.0); EST CRCL DRUG DOSING (CG) 39.91 mL/min; PROTEIN TOTAL,TP 8.6 g/dL (6.4-8.2)
[2023-01-30] MEDS ORDERED: Iopamidol 755 MG/ML 500 ML Multipack Bottle IVPUSH STA (18:03)
[2023-01-30 20:02] VITALS: BP 128/72; PULSE 52
== END 2023-01-30 20:00 | disposition home or self-care (01) ==
LOC: MW.ED 16:17
DX: S30.0XXA Contusion of lower back and pelvis, initial encounter (principal); Z91.040 Latex allergy status; Z88.0 Allergy status to penicillin; Z88.5 Allergy status to narcotic agent; Z88.8 Allergy status to other drugs, medicaments and biological substances; W50.0XXA Accidental hit or strike by another person, initial encounter; Y92.39 Other specified sports and athletic area as the place of occurrence of the external cause
CPT/HCPCS: 36415; 74177; 80053; 85025; 96374; 96375; 99284; J2060; J3010; Q9967

== ENCOUNTER 2024-01-04 07:42 | Emergency (ER) | payer BC ==
[2024-01-04] MEDS ORDERED: Sodium Chloride 0.9% 2.5 ML Syringe FLUSH PRN (08:15)
[2024-01-04] MEDS: diphenhydrAMINE 50 MG/ML SDV IVPUSH ONE (08:36)
[2024-01-04] MEDS: Metoclopramide 10 MG/2 ML SDV IVPUSH ONE (08:36)
[2024-01-04] MEDS: Ketorolac 30 MG/ML SDV IVPUSH ONE (08:36)
[2024-01-04] MEDS: Sodium Chloride 0.9% 500 ML IV SCH (08:37)
[2024-01-04] MEDS: Sodium Chloride 0.9% 10 ML Syringe FLUSH PRN (08:37)
[2024-01-04 09:53] VITALS: BP 117/74
[2024-01-04 10:34] VITALS: PULSE 80
== END 2024-01-04 10:34 | disposition home or self-care (01) ==
LOC: MW.ED 07:42
DX: G43.909 Migraine, unspecified, not intractable, without status migrainosus (principal); Z79.899 Other long term (current) drug therapy; Z88.0 Allergy status to penicillin; Z88.1 Allergy status to other antibiotic agents; Z91.040 Latex allergy status; Z88.5 Allergy status to narcotic agent; Z75.8 Other problems related to medical facilities and other health care
CPT/HCPCS: 96361; 96374; 96375; 99283; J1200; J1885; J2765; J3490; J7040

== ENCOUNTER 2024-06-05 06:52 | Emergency (ER) | payer BC ==
[2024-06-05] MEDS ORDERED: Sodium Chloride 0.9% 2.5 ML Syringe FLUSH PRN (07:25)
[2024-06-05] MEDS ORDERED: Sodium Chloride 0.9% 10 ML Syringe FLUSH PRN (07:25)
[2024-06-05] MEDS: Lactated Ringers 1,000 ML IV ONE ×2 (07:34→08:50)
[2024-06-05 10:56] VITALS: BP 127/80; PULSE 80
== END 2024-06-05 11:06 | disposition home or self-care (01) ==
LOC: MW.ED 06:52
DX: J06.9 Acute upper respiratory infection, unspecified (principal); E86.0 Dehydration; B34.9 Viral infection, unspecified; Z88.0 Allergy status to penicillin; Z91.040 Latex allergy status; Z88.5 Allergy status to narcotic agent; Z79.899 Other long term (current) drug therapy
CPT/HCPCS: 96360; 96361; 99284; J7120; 99282

== ENCOUNTER 2024-11-16 17:24 | Emergency (ER) | payer BC ==
[2024-11-16 18:15] VITALS: BP 130/68; PULSE 89
== END 2024-11-16 18:23 | disposition home or self-care (01) ==
LOC: MW.ED 17:24
DX: J45.901 Unspecified asthma with (acute) exacerbation (principal); J06.9 Acute upper respiratory infection, unspecified; Z88.0 Allergy status to penicillin; Z88.5 Allergy status to narcotic agent; Z91.040 Latex allergy status; Z88.8 Allergy status to other drugs, medicaments and biological substances; Z79.899 Other long term (current) drug therapy
CPT/HCPCS: 93005; 99284; A9270; Q0144; 93010; 99283